=== PATIENT | female | born 1965 | race Caucasian/White ===

== ENCOUNTER 2021-10-02 14:34 | Outpatient (CLI) | payer OTHER, SELFPAY ==
--- NOTE | ~2021-10-02 | MM_ITS ---
EXAMINATION: MM screening warren BI w hans HISTORY: Screening mammogram, family history of breast cancer in her mother. TECHNIQUE: Craniocaudal and mediolateral oblique 3-D tomosynthesis images were obtained and synthetic 2-D images were generated. CAD analysis was submitted and interpreted. COMPARISON: 02/15/2019, 07/23/2018, 07/16/2018, 07/05/2017 BREAST PARENCHYMAL COMPOSITION: There are scattered areas of fibroglandular density. FINDINGS: Scattered benign-appearing calcifications are present. There is no evidence of suspicious m ass, calcification, or architectural distortion to suggest malignancy in either breast. There has bee n no suspicious interval change. IMPRESSION: 1. No mammographic evidence of malignancy. 2. Recommend routine screening mammography in one year. BI-RADS Category 2: Benign finding(s). Reviewed, dictated and finalized at location A. TAMALE MAN
== END 2021-10-02 14:35 | disposition home or self-care (01) ==
LOC: ANHIMG 14:36
PROVIDERS: PCP Family Medicine Adolescent Medicine; Visit Provider Obstetrics & Gynecology
DX: Z12.31 Encounter for screening mammogram for malignant neoplasm of breast (principal)
CPT/HCPCS: 77063; 77067

== ENCOUNTER 2023-04-12 13:42 | Emergency (ER) | payer OTHER, SELFPAY ==
[2023-04-12 13:49] VITALS: BP 130/85; PULSE 65; RESP 16; TEMP 36.4; O2SAT 100
--- NOTE | 2023-04-12 14:28 | ED.SKABFB ---
HPI - Skin/Abscess/Foreign Bdy General Chief complaint: Skin/Abscess/Foreign Body Stated complaint: Insect Bite Rt Breast Time Seen by Provider: 04/12/23 14:23 Source: patient and RN notes reviewed Mode of arrival: ambulatory Limitations: no limitations History of Present Illness HPI narrative: Patient presents today complaining of a wasp sting to her right breast 2 days ago. States the area has started to become red and swollen. Denies pain or drainage. She has tried no aemr-yef-afrgngi interventions prior to arrival. Related Data Home Medications Medication Instructions Recorded Confirmed cyclosporine 0.05 % eye drops in a 1 drp EACH EYE BID 04/12/23 04/12/23 dropperette Allergies Allergy/AdvReac Type Severity Reaction Status Date / Time No Known Allergies Allergy Unknown Verified 04/12/23 14:09 Review of Systems Review of Systems: CONSTITUTIONAL: Denies body aches, fever, chills, or sweats. EYES: Denies visual changes, redness, or discharge. ENT: Denies rhinorrhea, congestion, sore throat, or otalgia. CARDIOVASCULAR: Denies chest pain, palpitations, or edema. RESPIRATORY: Denies cough or dyspnea. GASTROINTESTINAL: Denies abdominal pain, nausea, vomiting, or diarrhea. GENITOURINARY: Denies dysuria or hematuria. SKIN: + wasp sting to right breast MUSCULOSKELETAL: Denies back pain, joint pain, or myalgia. NEUROLOGIC: Denies headache, numbness, tingling, or weakness. PSYCH: Denies depression or anxiety. PMFSH Surgical History Surgical History Hx of neck surgery Family History Family History Mother Breast cancer Grandparent Ovarian cancer Social History Social History Smoking status: Current every day smoker Comments At time of signature, I have reviewed and agree with nursing past medical, surgical, social and family history unless otherwise noted. Please see nursing chart for further information. There is no relevant family history pertinent to the presenting complaint Exam Narrative: GENERAL: Well-appearing, well-nourished, and in no acute distress. HEAD: Normocephalic, atraumatic. EYES: EOMI. No redness or drainage. Conjunctivae normal. ENT: Mucous membranes pink and moist. NECK: Normal AROM. CHEST: No respiratory distress. EXTREMITIES: Normal range of motion. No edema. SKIN: Warm, dry. Capillary refill normal. Normal skin turgor. Entire right breast is erythematous without induration. There is scant edema as well. Small puncture wound to the 7 o'clock position, consistent with insect sting. NEURO: No focal deficits. Alert and oriented x3. Gait steady. PSYCH: Normal affect. No signs of depression or anxiety. Course Course Level of Care: Express Care Visit Vital Signs Vital signs: Vital Signs Temperature 97.6 F 04/12/23 13:49 Pulse Rate 65 04/12/23 13:49 Respiratory Rate 16 04/12/23 13:49 Blood Pressure 130/85 04/12/23 13:49 Pulse Oximetry 100 04/12/23 13:49 Oxygen Delivery Room Air 04/12/23 13:49 Temperature 97.6 F 04/12/23 13:49 Pulse Rate 65 04/12/23 13:49 Respiratory Rate 16 04/12/23 13:49 Blood Pressure 130/85 04/12/23 13:49 Pulse Oximetry 100 04/12/23 13:49 Oxygen Delivery Room Air 04/12/23 13:49 Reviewed. Pt has been instructed to follow up with her PCP regarding her elevated blood pressure today. MDM - Skin/Abscess/Foreign Bdy MDM Narrative Medical decision making narrative: Symptoms and exam consistent with an allergic reaction to insect sting. Will treat with course of prednisone. Instructed patient to start a daily antihistamine as well. Anticipatory guidance given. Differential Diagnosis Differential diagnosis: Likely abscess of skin or subcutaneous tissue, urticaria, cellulitis, insect bites and other (Insect sting)
== END 2023-04-12 14:36 | disposition home or self-care (01) ==
PROVIDERS: Emergency Provider Nurse Practitioner; PCP Family Medicine Adolescent Medicine
DX: T63.461A Toxic effect of venom of wasps, accidental (unintentional), initial encounter (principal); F17.200 Nicotine dependence, unspecified, uncomplicated
CPT/HCPCS: 99213; G0463

== ENCOUNTER 2023-07-02 14:41 | Outpatient (CLI) | payer OTHER, SELFPAY ==
--- NOTE | ~2023-07-02 | MM_ITS ---
EXAMINATION: MM screening warren BI w hans HISTORY: Screening mammogram, family history of breast cancer in her mother. TECHNIQUE: Craniocaudal and mediolateral oblique 3-D tomosynthesis images were obtained and synthetic 2-D images were generated. CAD analysis was submitted and interpreted. COMPARISON: 10/02/2021, 02/05/2019, 07/23/2018, 07/16/2018, 07/05/2017 BREAST PARENCHYMAL COMPOSITION: There are scattered areas of fibroglandular density. FINDINGS: A cluster of microcysts is again noted in the lower-outer right breast. No suspicious mass, calcification, or architectural distortion are identified in either breast to suggest malignancy. Th ere has been no suspicious interval change. IMPRESSION: 1. No mammographic evidence of malignancy. 2. Recommend routine screening mammography in one year. BI-RADS Category 2: Benign finding(s). Reviewed, dictated and finalized at location A.
== END 2023-07-02 14:42 | disposition home or self-care (01) ==
PROVIDERS: PCP Family Medicine Adolescent Medicine; Visit Provider Obstetrics & Gynecology
DX: Z12.31 Encounter for screening mammogram for malignant neoplasm of breast (principal)
CPT/HCPCS: 77063; 77067

== ENCOUNTER 2024-10-28 15:39 | Outpatient (CLI) | payer OTHER, SELFPAY ==
--- NOTE | ~2024-10-28 | MM_ITS ---
EXAMINATION: MM screening warren BI w hans HISTORY: Screening TECHNIQUE: Craniocaudal and mediolateral oblique 3-D tomosynthesis images were obtained and synthetic 2-D images were generated. CAD analysis was submitted and interpreted. COMPARISON: Comparison to multiple prior studies sequentially, with oldest reviewed study dated 02/2017. BREAST PARENCHYMAL COMPOSITION: Not dense: There are scattered areas of fibroglandular density. FINDINGS: There is a new low-density mass in the lower central aspect of the right breast, posteriorl y. The left breast is stable without evidence for malignancy. IMPRESSION: 1. New right breast mass. 2. Additional mammographic views and possible breast ultrasound are recommended. BI-RADS Category 0: Incomplete: Needs additional imaging evaluation. Reviewed, dictated and finalized at location A. GENCY ROOM DOCTOR IMPRESSION: 1. New right breast mass. 2. Additional mammographic views and possible breast ultrasound are recommended . BI-RADS Category 0: Incomplete: Needs additional imaging evaluation.
--- OUTSIDE RECORDS SUMMARY | 2024-10-28 16:24 | XMS_ITS | Clinical Summary ---
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 Gender Identity Not on file Sexual Orientation Not on file Plan of Treatment Health Maintenance Due Date Last Done Comments Hepatitis C Virus (HCV) Screening 1967 TdaP Immunization 1967 Hepatitis B Immunization (1 of 3 - 19+ 3-dose series) 1986 Pap Smear 1988 Cervical Cancer Screening (CCS) 1997 HPV/Cotest 1997 Colonoscopy 2012 Colorectal Cancer Screening 2012 Cologuard 2017 Immunochemical Fecal Occult Blood 2017 Mammogram 2017 Pneumococcal Immunization (5 0+ years) (1 of 1 - PCV) 2017 Zoster Immunization (1 of 2) 2017 Influenza Immunization (#1) 2024 07/27/2020 SARS-COV-2 Immunization (3 - season) 2024 03/13/2021, 02/13/2021 Respiratory Syncytial Virus (RSV) Immunization (Adult) (1 - 1-dose 75+ series) 2042 Meningococcal Immunization (ACWY) Aged Out No longer eligible b ased on patient's age to complete this topic Pneumococcal Immunization Combined Aged Out No longer eligible b ased on patient's age to complete this topic Rotavirus Immunization Aged Out No lo nger eligible based on patient's age to complete this topic
--- OUTSIDE RECORDS SUMMARY | 2024-10-28 16:24 | XMS_ITS | Clinical Summary ---
Author Organization [facility] Address [address] [place] [address] Care Team Providers Care Senior Copywriter Name Role Phone Oliverio Rosas MD Primary Care Provider + Source Comments [facility],non-owned Affiliates and Associated Physician Practices is amultiple site organization consisting of ambulatory clinics and hospital sitesin [place], [place], [place] and [place]. This disclosure is being madepursuant to the Care Everywhere program and may not contain all information available regarding this patient. Last updated 18.[facility] Allergies No known active allergies Medications * Be aware that medications may not be up to date on this document. Alwaysverify current medications with the patient. Medication Sig Dispensed Refills Start Date End Date Status ALPRAZolam (XANAX) 0.5 MG tablet Take 0.5 mg by mouth 3 times daily as needed 02/16/2021 Active atorvastatin (LIPITOR) 40 MG tablet Take 40 mg by mouth once daily 02/01/2021 Active RESTASIS 0.05 % ophthalmic suspension Instill 1 drop into both eyes 2 times daily BOTH EYES 02/08/2021 Active oxybutynin CR 24hr (DITROPAN-XL) 10 MG tablet Take 10 mg by mouth once daily 02/01/2021 Active TRINTELLIX 10 MG tablet Take 10 mg by mouth once daily 02/01/2021 Active Active Problems Problem Noted Date Diagnosed Date Dermatofibroma of right lower extremity 03/12/20 21 Seborrheic keratoses, inflamed 03/05/2021 Social History Tobacco Use Types Packs/Day Years Used Date Smoking Tobacco: Light Smoker Cigarettes Smokeless Tobacco: Never Tobacco Cessation:Ready to Q uit: Yes Comments:1 pk last 3 days Alcohol Use Standard Drinks/Week Comments Yes 1 (1 standard drink = 0.6 oz pur e alcohol) socially Sex and Gender Information Value Date Recorded Sex Assigned at Not on file Gender Identity Not on file Sexual Orientation Not on file Plan of Treatment Health Maintenance Due Date Last Done Comments COLOGUARD (AGES 45-75) - COL ON CA SCREENING 1967 COLON MONITORING 1967 COLONOSCOPY - COLON CA SCREENING 1967 CT COLONOGRAPHY - COLON CA SCREENING 1967 Colorectal Cancer Screening 1967 FIT - COLON CA SCREENING 1967 FLEX SIG - COLON CA SCREENING 1967 MAMMOGRAM 1967 PAP SMEAR 1967 HIV SCREENING 1982 HEPATITIS C SCREENING 05/15/1985 DTAP/TDAP/TD VACCINES (1 - Tdap) 1986 HEPATITIS B VACCINE (1 of 3 - 19+ 3-dose series) 1986 PNEUMOCOCCAL VACCINE 50+ (1 of 2 - PCV) 1986 PNEUMOCOCCAL VACCINE (1 of 2 - PCV) 1986 ZOSTER VACCINE (1 of 2) 2017 COVID-19 VACCINE ( - 2023-2 5 season) 2024 INFLUENZA VACCINE (#1) 2024 DEPRESSION SCREENING 09/30/2024 HIB VACCINE Aged Out No longer eligi ble based on patient's age to complete this topic HPV VACCINE Aged Out No longer eligi ble based on patient's age to complete this topic MENINGOCOCCAL (Group B) VACCINE Aged Out No longer eligible based on patient's age to complete this topic MENINGOCOCCAL VACCINE Aged Out No charlene keny eligible based on patient's age to complete this topic Care Teams Senior Copywriter Relationship Specialty Start Date End Date Oliverio Rosas MD [address] [place] [id number] PCP - General 01/30/18
--- OUTSIDE RECORDS SUMMARY | 2024-10-28 16:24 | XMS_ITS | Clinical Summary ---
Author Organization [facility] Address [address] [place] [address]. [place] [address] [place] [address] Care Team Providers Care Traffic Operations Manager Name Role Phone Oliverio Rosas MD Primary Care Provider [phone] Allergies No known active allergies Medications ALPRAZolam 0.5 MG tablet 05/11/2020 Active sertraline 100 MG tablet Take 100 mg by mouth daily. Active atorvastatin 40 MG tablet Take 40 mg by mouth daily. 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 Not on file Not on file Last Filed Vital Signs Vital Sign Reading Time Taken Comments Blood Pressure 118/71 06/14/2020 10:00 AM CDT Pulse 56 06/14/2020 10:00 AM CDT Temperature 36.4 ??C (97.5 ??F) 06/14/2020 9:40 AM CD T Respiratory Rate 19 06/14/2020 10:00 AM CDT Oxygen Saturation 100% 06/14/2020 10:00 AM CDT Inhaled Oxygen Concentration - - Weight 70.3 kg (155 lb) 06/10/2020 1:59 PM CDT Height 175.3 cm (5' 9 ) 06/10/2020 1:59 PM CDT Body Mass Index 22.89 06/10/2020 1:59 PM CDT Plan of Treatment Health Maintenance Due Date Last Done Comments Cervical Cancer Screening Pa p Smear (Age 30 to 64) Every 3 Years 1967 Annual Physical 1970 Hepatitis C 1985 DTaP, Tdap and Td Vaccines ( 1 - Tdap) 1986 Hepatitis B Vaccines (1 of 3 - 19+ 3-dose series) 1986 Cervical Cancer Screening Pa p with HPV Testing (Age 30 to 64) Every 5 Years 1997 Cervical Cancer Screening with HPV 1997 Mammogram Screening 2007 Zoster Vaccines (1 of 2) 2017 COVID-19 Vaccine (2023-2 5 season) 2024 Influenza Adult (#1) 2024 Colorectal Cancer Screening Colonoscopy (10 Years) 06/14/2030 06/14/2020 Meningococcal B Vaccine Aged Out No l onger eligible based on patient's age to complete this topic Meningococcal Vaccine Aged Out No charlene keny eligible based on patient's age to complete this topic Pneumococcal Vaccine: Pediat rics (0 to 5 Years) and At-Risk Patients (6 to 64 Years) Aged Out No longer eligi ble based on patient's age to complete this topic RSV Immunizations Under 20 Months Aged Out No longer eligible based on patient's age to complete this topic Insurance Care Teams Traffic Operations Manager Relationship Specialty Start Date End Date Oliverio Rosas MD [address] [address] PCP - General FAMILY PRACTICE 06/10/20
--- OUTSIDE RECORDS SUMMARY | 2024-10-28 16:24 | XMS_ITS | Referral Summary ---
Author Organization [facility] [employer] Address [address] [place] [address] Care Team Providers Care Compensation Consulting Manager Name Role Phone Oliverio Rosas MD Primary Care Provider + Source Comments [facility] [employer],non-owned Affiliates and Associated Physician Practices is amultiple site organization consisting of ambulatory clinics and hospital sitesin [place], [place], [place] and [place]. This disclosure is being madepursuant to the Care Everywhere program and may not contain all information available regarding this patient. Last updated 18.[facility] [employer] Allergies No known active allergies Medications * [...] Orientation Not on file Plan of Treatment Not on file Care Teams Compensation Consulting Manager Relationship Specialty Start Date End Date Oliverio Rosas MD [address] [place] [id number] PCP - General 01/30/18
--- OUTSIDE RECORDS SUMMARY | 2024-10-28 16:24 | XMS_ITS | CONTINUITY OF CARE DOCUMENT ---
Author Name melissa karlasebastian Address Unknown Organization [facility] Address [address] [place] [address] [address] [place] [address] Phone [phone] Care Team Providers Care Call Manager Name Role Phone Danilo LYLE, Yessica Unavailable Amparo GA MD Unavailable [phone] KIMBERLI CHRIS MD Unavailable [phone] INSURANCE PROVIDERS Payer name Policy type / Coverage type [place] red republican [employer] FAMILY [employer] Medicaid 1 [id number] [employer] Other [id number]
--- OUTSIDE RECORDS SUMMARY | 2024-10-28 16:24 | XMS_ITS | Encounter Summary ---
Author Organization [facility] Address [address] [place] [address]. [place] [address] [place] [address] Care Team Providers Care Slab Lifting Supervisor Name Role Phone Oliverio Rosas MD Primary Care Provider [phone] Encounter Details Date Type Department Care Team (Late st Contact Info) Description 06/11/2020 Prep for Procedure [facility] [place], [place] [id number] See David MD [address] [id number] Social History Tobacco Use Types Packs/Day Years Used Date Smoking Tobacco: Former Cigarettes 0.5 30 0 01/11/1990 - 01/12/2020 Smokeless Tobacco: Never Alcohol Use Standard Drinks/Week Comments Yes 0 (1 standard drink = 0.6 oz pur e alcohol) rare use Comments Unknown Sex and Gender Information Value Date Recorded Sex Assigned at Not on file Legal Sex Female 2:24 PM CDT Gender Identity Not on file Sexual Orientation Not on file Occupation Industry Job Start Date Job End Date 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 No / Unsure 06/14/2020 7:09 AM CDT documented as of this encounter Plan of Treatment Not on file documented as of this encounter Results * PRE-SURGICAL/PRE-PROCEDURE CORONAVIRUS (COVID 19) (06/11/2020 8:54 AM CDT) CORONAVIRUS SARS COV 2 PCR (RESP) NOT DETECTED NOT DETECTED 06/12/2020 5:06 PM CDT [facility] [facility] Comment: A Not Detected (negative) test result for this test means that SARS- CoV-2 RNA was not present in the specimen above the limit of detection. A negative result does not rule out the possibility of COVID-19 and should not be used as the sole basis for treatment or patient management decisions. ??If COVID-19 is still suspected, based on exposure history together with other clinical findings, re-testing should be considered in consultation with public health authorities. Laboratory test results should always be considered in the context of clinical observations and epidemiological data in making a final diagnosis and patient management decisions. Please review the Fact Sheets and FDA authorized labeling available for health care providers and patients using the following websites: https://www.[employer]/home/Covid-19/HCP/NAAT/fact-sheet2 https://www.[employer]/home/Covid-19/Patients/NAAT/ fact-sheet2 This test has been authorized by the FDA under an Emergency Use Authorization (EUA) for use by authorized laboratories. Due to the current public health emergency, [facility] is receiving a high volume of samples from a wide variety of swabs and media for COVID-19 testing. In order to serve patients during this public health crisis, samples from appropriate clinical sources are being tested. Negative test results derived from specimens received in non-commercially manufactured viral collection and transport media, or in media and sample collection kits not yet authorized by FDA for COVID-19 testing should be cautiously evaluated and the patient potentially subjected to extra precautions such as additional clinical monitoring, including collection of an additional specimen. Methodology: ??Nucleic Acid Amplification Test (NAAT) includes PCR or TMA Additional information about COVID-19 can be found at the [employer] website: www.[employer]/Covid19. Test performed at [facility] [address] [place], [place] ??[id number] Director: SHADE JONES DO,MPH FIRST TEST YES 06/11/2020 11:16 AM [facility] EMPLOYED IN HEALTHCARE NO 06/11/2020 11:16 AM [facility] SYMPTOMATIC DEFINED BY CDC NO 06/11/2020 11:16 AM CDT [facility] DATE OF SYMPTOM ONSET UNKNOWN 06/11/2020 12:05 PM CDT [facility] HOSPITALIZATION STATUS NO 06/11/2020 11:16 AM CDT [facility] PATIENT IN ICU NO 06/11/2020 11:16 AM CDT [facility] RESIDENT OF [facility] NO 06/11/2020 11:16 AM CDT [facility] NOT 06/11/2020 11:16 AM CDT [facility] PATIENT'S RACE PATIENT DECLINED 05/31 11:16 AM CDT [facility] ETHNICITY PATIENT DECLINED 06/11/20 20 11:16 AM CDT [facility] SOURCE (QST) NASOPHARYNGEAL SWAB 06/11/2020 11:16 AM CDT [facility] NASOPHARYNGEAL SWAB / Unknown 06/11/2020 8:54 AM CDT us See David MD MICROBIOLOGY - GENERAL BETH TRAN Final Result [facility] [address] [place] [address], [facility] [facility] [id number] [place] [id number], documented in this encounter Visit Diagnoses Diagnosis Screen for colon cancer- Primary Special screening for malignant neoplasms, colon documented in this encounter Additional Health Concerns Infection Onset Date Last Indicated Resolved Time COVID-19 Rule Out 06/11/2020 06/11/2020 06/12/2020 5:06 PM CDT documented as of this encounter Care Teams Slab Lifting Supervisor Relationship Specialty Start Date End Date Oliverio Rosas MD [address] [place] [id number] PCP - General FAMILY PRACTICE 06/10/20 documented as of this encounter
--- OUTSIDE RECORDS SUMMARY | 2024-10-28 16:24 | XMS_ITS | Patient Health Summary ---
Author Organization [facility] Address [address] [facility] [place] [address] Care Team Providers Care Wool Fleece Grader Name Role Phone Oliverio Rosas MD Primary Care Provider + Note from [facility],non-owned Affiliates and Associated Physician Practices is amultiple site organization consisting of ambulatory clinics and hospital sitesin [place], [place], [place] and [place]. This disclosure is being madepursuant to the Care Everywhere program and may not contain all information available regarding this patient. Last updated 18.[facility] Allergies No known active allergies Medications * Be aware that medications may not be up to date on this document. Alwaysverify current medications with the patient. * ALPRAZolam (XANAX) 0.5 MG tablet(Started 02/16/2021) Take 0.5 mg by mouth 3 times daily as needed * atorvastatin (LIPITOR) 40 MG tablet(Started 02/01/2021) Take 40 mg by mouth once daily * RESTASIS 0.05 % ophthalmic suspension(Started 02/08/2021) Instill 1 drop into both eyes 2 times daily BOTH EYES * oxybutynin CR 24hr (DITROPAN-XL) 10 MG tablet(Started 02/01/2021) Take 10 mg by mouth once daily * TRINTELLIX 10 MG tablet(Started 02/01/2021) Take 10 mg by mouth once daily Active Problems Problem Noted Date Diagnosed Date [...] on file Sexual Orientation Not on file Procedures * ID DESTRUCT BENIGN LESION, 1-14(Performed 03/06/2021) Performed for Seborrheic keratoses, inflamed * FUNGUS KRISSY - POINT OF CARE (AMB) [facility](Performed 08/08/2017) Results * ID DESTRUCT BENIGN LESION, 1-14 (03/06/2021 8:46 AM CDT) Narrative Taz Drummond MD - 03/06/2021 8:46 AM CDT Thad Marshall MD ? 03/06/2021 ??8:46 AM Diagnosis and treatment options discussed for ISKs. Verbal consent obtained. Cryotherapy (Liquid Nitrogen) performed to 1 lesions on L cheek ?? for 6-7 seconds each. Number of cycles: 1. Wound care reviewed and post-cryotherapy handout given. Thad Marshall MD [facility] Dermatology Resident, PGY-4 Taz Drummond MD PROCEDURE/MINOR SURG [facility] ORDERABLES * FUNGUS KRISSY - POINT OF CARE (AMB) [facility] (08/08/2017) KRISSY Prep pos [facility] Fluid specimen (specimen) 08/08/2017 Taz Drummond MD LAB - POINT OF CARE ORDERABLES [facility] Care Teams Wool Fleece Grader Relationship Specialty Start Date End Date Oliverio Rosas MD [address] [place] [id number] PCP - General 01/30/18
== END 2024-10-28 15:40 | disposition home or self-care (01) ==
LOC: ANHIMG 15:42
PROVIDERS: PCP Family Medicine Adolescent Medicine; Visit Provider Obstetrics & Gynecology
DX: Z12.31 Encounter for screening mammogram for malignant neoplasm of breast (principal); N63.14 Unspecified lump in the right breast, lower inner quadrant
CPT/HCPCS: 77063; 77067

== ENCOUNTER 2024-11-11 12:49 | Outpatient (CLI) | payer OTHER, SELFPAY ==
--- NOTE | ~2024-11-11 | MMUS_ITS ---
EXAMINATION: MM diagnostic warren RT w hans, US breast RT complete HISTORY: Right breast lump TECHNIQUE: Additional 3-D tomosynthesis images of the right breast were performed and synthetic 2-D i mages were generated. CAD analysis was submitted and interpreted. High resolution complete right kelly st ultrasound was performed. COMPARISON: Comparison to multiple prior studies sequentially, with oldest reviewed study dated 06/30. BREAST PARENCHYMAL COMPOSITION: Not dense: There are scattered areas of fibroglandular density. FINDINGS: MAMMOGRAPHIC FINDINGS: There is a radiolucent mass in the lower central aspect of the right breast, middle third. There are no suspicious calcifications or architectural distortion. ULTRASOUND: Complete US of all 4 quadrants of the right breast/s and retroareolar region was reviewed. No masses are identified. Normal heterogeneous echotexture. IMPRESSION: 1. Probable benign mass lower central right breast, middle third with central lucency. No sonographic correlate. 2. Recommend 6 month follow-up diagnostic right mammogram BI-RADS category 3, probably benign findings. Reviewed, dictated and finalized at location [facility] IMPRESSION: 1. Probable benign mass lower central right breast, middle third with central l ucency. No sonographic correlate. 2. Recommend 6 month follow-up diagnostic right mammogram BI-RADS category 3, probably benign findings.
--- OUTSIDE RECORDS SUMMARY | 2024-11-11 12:53 | XMS_ITS | Clinical Summary ---
Author Organization [facility] Address [address] [place] [address] Care Team Providers Care Master Tax Advisor Name Role Phone Oliverio Rosas MD Primary Care Provider + Source Comments [facility],non-owned Affiliates and Associated Physician Practices is amultiple site organization consisting of ambulatory clinics and hospital sitesin [place], [place], [place]. This disclosure is being madepursuant to the Care Everywhere program and may not contain all information available regarding this patient. Last updated 18.[facility] Allergies No known active allergies Medications * [...] age to complete this topic Care Teams Master Tax Advisor Relationship Specialty Start Date End Date Oliverio Rosas MD [address] [place] [id number] PCP - General 01/30/18
--- OUTSIDE RECORDS SUMMARY | 2024-11-11 12:53 | XMS_ITS | Patient Health Summary ---
Author Organization [facility] Address [address] [facility] [place] [address] Care Team Providers Care Tank Car Cleaner Name Role Phone Oliverio Rosas MD Primary Care Provider + Note from [facility],non-owned Affiliates and Associated Physician Practices is amultiple site organization consisting of ambulatory clinics and hospital sitesin [place], [place], [place] and [place]. This disclosure is being madepursuant to the Care Everywhere program and may not contain all information available regarding this patient. Last updated 18.[facility] Allergies No known active allergies [...] Sexual Orientation Not on file Procedures * [place] DESTRUCT BENIGN LESION, 1-14(Performed 03/06/2021) Performed for Seborrheic keratoses, inflamed * FUNGUS KRISSY - POINT OF CARE (AMB) [facility](Performed 08/08/2017) Results * [place] DESTRUCT BENIGN LESION, 1-14 (03/06/2021 8:46 AM CDT) Narrative Taz Drummond MD - 03/06/2021 8:46 AM CDT Thad Marshall MD 03/06/2021 8:46 AM Diagnosis and treatment options discussed for ISKs. Verbal consent obtained. Cryotherapy (Liquid Nitrogen) performed to 1 lesions on L cheek for 6-7 seconds each. Number of cycles: 1. Wound care reviewed and post-cryotherapy handout given. Thad Marshall MD [facility] Dermatology Resident, PGY-4 Taz Drummond MD PROCEDURE/MINOR SURG [facility] ORDERABLES * FUNGUS KRISSY - POINT OF CARE (AMB) [facility] (08/08/2017) KRISSY Prep pos [facility] Fluid specimen (specimen) 08/08/2017 Taz Drummond MD LAB - POINT OF CARE ORDERABLES [facility] Care Teams Tank Car Cleaner Relationship Specialty Start Date End Date Oliverio Rosas MD [address] [place] [address] PCP - General 01/30/18
--- OUTSIDE RECORDS SUMMARY | 2024-11-11 12:53 | XMS_ITS | Clinical Summary ---
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
--- OUTSIDE RECORDS SUMMARY | 2024-11-11 12:53 | XMS_ITS | Referral Summary ---
Author Organization [facility] Address [address] [facility] [place] [address] Care Team Providers Care Education Coordinator Name Role Phone Oliverio Rosas MD Primary Care Provider + Source Comments [facility],non-owned Affiliates and Associated Physician Practices is amultiple site organization consisting of ambulatory clinics and hospital sitesin [place], [place], [place] and [place]. This disclosure is being madepursuant to the Care Everywhere program and may not contain all information available regarding this patient. Last updated 18.[facility] Allergies No known active allergies Medications * [...] of Treatment Not on file Care Teams Education Coordinator Relationship Specialty Start Date End Date Oliverio Rosas MD [address] [place] [id number] PCP - General 01/30/18
--- OUTSIDE RECORDS SUMMARY | 2024-11-11 12:53 | XMS_ITS | CONTINUITY OF CARE DOCUMENT ---
Author Name melissa karlasebastian Address Unknown Organization [facility] Address [address] [place] [address] [address] [place] [address] Phone [phone] Care Team Providers Care Peoplesoft Analyst Name Role Phone Danilo LYLE, Yessica Unavailable Amparo GA MD Unavailable KIMBERLI CHRIS MD Unavailable INSURANCE PROVIDERS Payer name Policy type / Coverage type [place] red democr[employer] Medicaid 1 [id number] [employer] Other [id number]
== END 2024-11-11 12:50 | disposition home or self-care (01) ==
LOC: ANHIMG 12:50
PROVIDERS: PCP Family Medicine Adolescent Medicine; Visit Provider Obstetrics & Gynecology
DX: N63.10 Unspecified lump in the right breast, unspecified quadrant (principal); R92.8 Other abnormal and inconclusive findings on diagnostic imaging of breast
CPT/HCPCS: 76641; 77061; 77065; G0279

== ENCOUNTER 2025-05-17 11:13 | Outpatient (CLI) | payer OTHER, SELFPAY ==
--- NOTE | ~2025-05-17 | MMUS_ITS ---
EXAMINATION: MM diagnostic warren RT w hans, US breast RT limited HISTORY: Six-month follow-up exam TECHNIQUE: 3-D tomosynthesis images of the right breast were performed and synthetic 2-D images were generated. CAD analysis was submitted and interpreted. High resolution limited right breast ultrasoun d was performed. COMPARISON: 11/11/2024, 10/28/2024, 07/02/2023 BREAST PARENCHYMAL COMPOSITION:Not Dense. There are scattered areas of fibroglandular density. FINDINGS: MAMMOGRAPHIC FINDINGS: Stable 7 mm low-density mass in the slightly lower, subareolar right breast. No suspicious microcalci fications. No new distortion. ULTRASOUND: At the 6:00 right subareolar region, there is a 7 x 7 x 4 mm hypoechoic circumscribed wider than tall mass, with mildly lobulated borders. This correlates with mammographic finding. IMPRESSION: 7 mm benign-appearing mass in the right breast seen mammographically and sonographically, as above, unchanged dating back to 2022, therefore most compatible with benign finding. BI-RADS Category 2: Benign finding(s). Reviewed, dictated and finalized at location M. IMPRESSION: 7 mm benign-appearing mass in the right breast seen mammographically and sonog raphically, as above, unchanged dating back to 2022, therefore most compatible with benign finding. BI-RADS Category 2: Benign finding(s).
--- OUTSIDE RECORDS SUMMARY | 2025-05-17 12:33 | XMS_ITS | Clinical Summary ---
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 Gender Identity Not on file Sexual Orientation Not on file Plan of Treatment Health Maintenance Due Date Last Done Comments Hepatitis C Virus (HCV) Screening 1967 TdaP Immunization 1967 Hepatitis B Immunization (1 of 3 - 19+ 3-dose series) 1986 Pap Smear 1988 Cervical Cancer Screening (CCS) 1997 HPV/Cotest 1997 Cologuard 2012 Colonoscopy 2012 Colorectal Cancer Screening 2012 Immunochemical Fecal Occult Blood 2012 Pneumococcal Immunization (5 0+ years) (1 of 1 - PCV) 2017 Zoster Immunization (1 of 2) 2017 SARS-COV-2 Immunization ( - season) 2024 03/13/2021, 02/13/2021 Influenza Immunization (#1) 2025 07/27/2020 Respiratory Syncytial Virus (RSV) Immunization (Adult) (1 - 1-dose 75+ series) 2042 Human Papillomavirus (HPV) Immunization Aged Out No longer eligible b ased on patient's age to complete this topic Meningococcal Immunization (ACWY) Aged Out No longer eligible b ased on patient's age to complete this topic Rotavirus Immunization Aged Out No lo nger eligible based on patient's age to complete this topic
--- OUTSIDE RECORDS SUMMARY | 2025-05-17 12:33 | XMS_ITS | Encounter Summary ---
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 A negative result does not rule out the possibility of COVID-19 and should not be used as the sole basis for treatment or patient management decisions. If COVID-19 is still suspected, based on exposure [...] providers and patients using the following websites: https://www.[employer]/home/Covid-19/HCP/NAAT/fact-sheet2 https://www.[employer]/home/Covid-19/Patients/NAAT/ fact-sheet2 This test has been authorized by the FDA under an Emergency Use Authorization (EUA) for use by authorized laboratories. Due to the current public health emergency, [facility] is receiving a high volume of samples [...] including collection of an additional specimen. Methodology: Nucleic Acid Amplification Test (NAAT) includes PCR or TMA Additional information about COVID-19 can be found at the [facility] website: www.[employer]/Covid19. Test performed at [facility] [address] [place] [address] Director: SHADE JONES DO,MPH FIRST TEST YES 06/11/2020 11:16 AM CDT [facility] EMPLOYED IN HEALTHCARE NO 06/11/2020 11:16 AM T [facility] SYMPTOMATIC DEFINED BY CDC NO 06/11/2020 11:16 AM CDT [facility] DATE OF SYMPTOM ONSET UNKNOWN 06/11/2020 12:05 PM CDT [facility] HOSPITALIZATION STATUS NO 06/11/2020 11:16 AM CDT [facility] PATIENT IN ICU NO 06/11/2020 11:16 AM CDT [facility] RESIDENT OF CONGREGATE CARE NO 06/11/2020 11:16 AM CDT [facility] NOT 06/11/2020 11:16 AM CDT [facility] PATIENT'S RACE PATIENT DECLINED 05/31 11:16 AM CDT [facility] ETHNICITY PATIENT DECLINED 06/11/20 20 11:16 AM CDT [facility] SOURCE (QST) NASOPHARYNGEAL SWAB 06/11/2020 11:16 AM CDT [facility] NASOPHARYNGEAL SWAB / Unknown 06/11/2020 8:54 AM CDT us See David MD MICROBIOLOGY - GENERAL BETH TRAN Final Result [facility] [address] [place] [address], [facility] [address] [address], documented in this encounter Visit Diagnoses Diagnosis Screen for colon cancer- Primary Special screening for malignant neoplasms, colon documented in this encounter Additional Health Concerns Infection Onset Date Last Indicated Resolved Time COVID-19 Rule Out 06/11/2020 06/11/2020 06/12/2020 5:06 PM CDT documented as of this encounter Care Teams Board Machine Set Up Operator Relationship Specialty Start Date End Date Oliverio Rosas MD [address] [address] PCP - General FAMILY PRACTICE 06/10/20 documented as of this encounter
--- OUTSIDE RECORDS SUMMARY | 2025-05-17 12:33 | XMS_ITS | Clinical Summary ---
Author Organization [facility] [employer] Address [address] [facility] [place] [address] Care Team Providers Care Career Center Advisor Name Role Phone Oliverio Rosas MD Primary Care Provider + Source Comments [facility] [employer],non-owned Affiliates and Associated Physician Practices is amultiple site organization consisting of ambulatory clinics and hospital sitesin [place], [place], [place] and [place]. This disclosure is being madepursuant to the Care Everywhere program and may not contain all information available regarding this patient. Last updated 18.[facility] [employer] Allergies No known active allergies Medications * Be aware that medications may not be up to date on this document. Alwaysverify current medications with the patient. 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 Gender Identity Not on file Sexual Orientation [...] - COLON CA SCREENING 1967 MAMMOGRAM 1967 HIV SCREENING 1982 HEPATITIS C SCREENING 05/15/1985 DTAP/TDAP/TD VACCINES (1 - Tdap) 1986 HEPATITIS B VACCINE (1 of 3 - 19+ 3-dose series) 1986 PNEUMOCOCCAL VACCINE 50+ (1 of 1 - PCV) 2017 ZOSTER VACCINE (1 of 2) 2017 COVID-19 VACCINE (1 - 2023-2 5 season) 2024 DEPRESSION SCREENING 09/30/2024 INFLUENZA VACCINE (#1) 2025 HIB VACCINE Aged Out No longer eligi ble based on patient's age to complete this topic HPV VACCINE Aged Out No longer eligi ble based on patient's age to complete this topic MENINGOCOCCAL (Group B) VACC INE SHARED DECISION-MAKING Aged Out No longer eligibl e based on patient's age to complete this topic MENINGOCOCCAL GROUPS A/C/Y/W VACCINE Aged Out No longer eligible b ased on patient's age to complete this topic Insurance Care Teams Career Center Advisor Relationship Specialty Start Date End Date Oliverio Rosas MD [address] [address] PCP - General 01/30/18
--- OUTSIDE RECORDS SUMMARY | 2025-05-17 12:34 | XMS_ITS | Clinical Summary ---
Author Organization [facility] Address [address] [place] [address] Care Team Providers Care Missile Facilities Repairer Name Role Phone Oliverio Rosas MD Primary Care Prov ider Allergies No known active allergies Medications ALPRAZolam (XANAX) 0.5 mg tablet 4 02/04/2025 Active Concerta 27 mg CR tablet 0 02/21/2025 Active lovastatin (MEVACOR) 40 mg tablet Take 1 tablet (40 mg total) by mouth nightly Active FLUoxetine (PROzac) 40 mg capsule Take 1 capsule (40 mg total) by mouth daily Active buPROPion XL (WELLBUTRIN XL) 300 mg 24 hr tablet Take 1 tablet (300 mg total) by mouth daily Active oxyBUTYnin XL (DITROPAN-XL) 10 mg 24 hr tablet Take 1 tablet (10 mg total) by mouth daily Active epwtolou-pmdl-v in-folic acid 18-0.4 mg tablet Take by mouth Active ibuprofen (ADVIL,MOTRIN) 400 mg tablet Take by mouth every 6 (six) hours as needed for pain Active Active Problems No known active problems Encounters Date Type Department Care Team Description 03/09/2025 7:32 AM CDT Anesthesia Event [facility] [address] [place] [address] Salo Sierra MD 03/09/2025 7:30 AM CDT - 03/09/2025 8:00 AM CDT Surgery [facility] [address] [place] [address] Chon Chatman MD COLON REMOVAL SNARE 03/09/2025 6:13 AM CDT - 03/09/2025 9:50 AM CDT Hospital Encounter [facility] [address] [id number] Chon Chatman MD History of colon polyps Discharge Disposition: Discharge to home or self care from Last 3 Months Surgical History Surgery Date Site/Laterality Comments COLONOSCOPY CERVICAL SPINE SURGERY C6 SECTION Medical History Medical History Date Comments Colon polyp Chronic constipation Hyperlipidemia Anxiety Depression Adhd Social History Tobacco Use Types Packs/Day Years Used Date Smoking Tobacco: Every Day Cigarettes Tobacco Cessation:Ready to Q uit: Not Asked; Counseling Given: Not Answered AUDIT-C Answer Date Recorded Q1: How often do you have a drink containing alc ohol? 2-3 times a week 03/09/2025 Q2: How many drinks containi ng alcohol do you have on a typical day when you are drinking? 1 or 2 03/09/2025 Q3: How often do you have si x or more drinks on one occasion? Less than monthly 03/09/2025 Personal Safety Answer Date Recorded Have you ever been in or are you currently in a harmful physical or emotional relationship or is someone making you feel afraid or unsafe? 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 Gender Identity Not on file Sexual Orientation Not on file Obstetrics History Last Filed Vital Signs Vital Sign Reading Time Taken Comments Blood Pressure 133/74 03/09/2025 9:25 AM CDT Pulse 58 03/09/2025 9:25 AM CDT Temperature 36.3 C (97.3 F) 03/09/2025 6:35 AM CDT Respiratory Rate 8 03/09/2025 9:25 AM CDT Oxygen Saturation 99% 03/09/2025 9:25 AM CDT Inhaled Oxygen Concentration - - Weight 72.6 kg (160 lb) 03/09/2025 6:54 AM CDT Height 175.3 cm (5' 9) 03/09/2025 6:54 AM CDT Body Mass Index 23.63 03/09/2025 6:54 AM CDT Plan of Treatment Upcoming Encounters Date Type Department Care Team (Late st Contact Info) Description 05/27/2025 9:30 AM CDT Hospital Encounter [facility] [address] [place] [address] Chon Chatman MD [address] [place] [id number] 05/27/2025 9:30 AM CDT - 05/27/2025 10:00 AM CDT Surgery [facility] [address] [place] [address] Chon Chatman MD [address] [place] [phone] COLONOSCOPY Scheduled Procedures Name Priority Associated Diagnoses Date/Ti me COLONOSCOPY screening 05/27/2025 9:30 AM CDT Health Maintenance Due Date Last Done Comments Breast Cancer Screening-Mammogram 1965 Cervical Cancer Screening 1965 Depression Screening 1965 Hepatitis C Screening 1965 DTaP/Tdap/Td Vaccine (1 - Tdap) 1978 Hepatitis B Screening 1985 Regular Well Visit/Exam 18-64 1985 Pneumococcal vaccine <65 (1 of 2 - PCV) 1986 Zoster Vaccine (1 of 2) 2017 Influenza Vaccine (#1) 2025 Colon Cancer Screening-Colonoscopy 03/09/20352024 Medical Devices Implanted Type Area Bobbin Stripper Device Identifier Shelf Expiration Date Model / Serial / Lot Neck Inplant Neck Procedures Procedure Name Priority Date/Time Associated Diagnosis Comments SURGICAL PATHOLOGY Routine 03/09/2025 8: 14 AM CDT History of colon polyps COLONOSCOPY 03/09/2025 7:32 AM CDT ENDO ADD ON COLON BIOPSY 03/09/2025 7:32 AM CDT Screening COLON REMOVAL SNARE 03/09/2025 7 :32 AM CDT Screening from Last 3 Months Results * Surgical pathology (03/09/2025 8:14 AM CDT) Tissue (Colon, Biopsy) 03/09/2025 8:14 AM CDT Tissue specimen (specimen) (Colon, Biopsy) 03/09/2025 8:14 AM CDT Tissue specimen (specimen) (Colon, Biopsy) 03/09/2025 8:17 AM CDT Tissue specimen (specimen) (Polyp(s), colon/colorectal, esophageal, gastric) 03/09/2025 8:24 AM CDT Tissue specimen (specimen) (Colon, Biopsy) 03/09/2025 8:32 AM CDT Tissue specimen (specimen) (Colon, Biopsy) 03/09/2025 8:35 AM CDT Tissue specimen (specimen) (Colon, Biopsy) 03/09/2025 8:40 AM CDT Tissue specimen (specimen) (Polyp(s), colon/colorectal, esophageal, gastric) 03/09/2025 8:44 AM CDT Tissue specimen (specimen) (Polyp(s), colon/colorectal, esophageal, gastric) 03/09/2025 8:47 AM CDT Narrative PATHOLOGY [facility] - 03/12/2025 2:25 PM CDT [facility] Department of Pathology [address] [place] [address] Note to Patients: This report may contain a detailed description of human tissue sent by a health care provider to the laboratory for pathologic evaluation. The content of this report is essential for diagnosis and may provide important critical findings. This information may be unfamiliar to patients to review without a medical professional present. It is advised that the patient review this report in the presence of a health care provider who can answer questions and explain the details. Final Report Patient Name: BAYRON HERRERA : 1965 (Age: 59) Gender: F Address: [address] [place] [address] Hospital #: [id number] Service: Surgery Location: Patient Type: [facility] OUTPATIENT Taken: 03/09/2025 Received: 03/09/2025 Accessioned: 03/09/2025 Reported: 03/12/2025 Physician(s): MD Oliverio Figueroa M.D. Diagnosis: A. Cecal polyp, biopsy - Tubular adenoma. B. Ascending colon polyp, biopsy - Tubular adenoma. C. Proximal transverse colon polyp, biopsy - Tubular adenoma. D. Mid transverse colon polyps x3, biopsy - Fragments of tubular adenoma(s). E. Distal transverse colon polyp, biopsy - Tubular adenoma. F. Splenic flexure polyps x2, biopsy - Fragments of tubular adenoma(s). G. Descending colon polyps x2, biopsy - Hyperplastic polyp. - Tubular adenoma. H. Sigmoid colon polyp, biopsy - Hyperplastic polyp. I. Rectal polyp, biopsy - Hyperplastic polyp. Sanya Byrne M.D. Report Electronically Reviewed and Signed Out By Sanya Byrne M.D. 03/12/2025 14:25:31 Specimen(s) Received: A: cecal polyp biopsy x1 B: ascending colon polyp x1 C: proximal transverse colon polyp x1 D: mid transverse colon polyp x3 E: distal transverse colon polyp F: splenic flexure polyp x2 G: descending colon polyp x2 H: sigmoid colon polyp x1 I: rectum polyp x1 Microscopic Description: Microscopic examination is performed. Microscopic examination is performed. Clinical History: The patient is a 59-year-old woman presenting for a colon cancer screening. Operative procedure : colonoscopy and biopsy. Gross Description Received in nine formalin jars labeled with the patient's identifiers. A. Labeled cecal polyp biopsy x1 and consists of a 0.4 cm fragment of jones-pink tissue. Submitted entirely. Labeled A1. Jar 0. B. Labeled ascending colon polyp x1 and consists of a 0.2 cm fragment of jones-pink tissue. Submitted entirely. Labeled B1. Jar 0. C. Labeled proximal transverse colon polyp x1 and consists of two fragments of jones-pink tissue measuring 0.4 cm and 0.5 cm. Submitted entirely. Labeled C1. Jar 0. D. Labeled mid transverse colon polyp x3 and consists of four fragments of jones- pink tissue ranging 0.3 to 0.8 cm. The largest is inked black and bisected. Submitted entirely. Labeled D1. Jar 0. E. Labeled distal transverse colon polyp and consists of a 0.4 cm fragment of jones-pink tissue. Submitted entirely. Labeled E1. Jar 0. F. Labeled splenic flexure polyp x2 and consists of three fragments of jones-pink tissue ranging 0.3-0.4 cm. Submitted entirely. Labeled F1. Jar 0. G. Labeled descending colon polyp x2 and consists of a 0.5 cm fragment of jones- pink tissue. Submitted entirely. Labeled G1. Jar 0. H. Labeled sigmoid colon polyp x1 and consists of a 1.0 x 0.6 x 0.5 cm polypoid jones-pink tissue fragment. Sectioned and submitted entirely. Labeled H1. Jar 0. I. Labeled rectum polyp x1 and consists of two jones-pink polypoid tissue fragments measuring 0.5 and 0.8 cm. Largest is inked black and bisected. Submitted entirely. Labeled I1. Jar 0. [facility]/03/09/2025 15:52 AUBREY Osborne Microscopic slide review and interpretation for this case was performed at [facility], Department of Surgical Pathology, [address] [facility] [place] [place] [id number], [place] [address] CLIA # [id number] us Chon Chatman MD LAB PATHOLOGY ORDERAB LES Final Result PATHOLOGY [facility] * Colonoscopy (03/09/2025 7:32 AM CDT) Anatomical Region Laterality Modality Other Narrative Procedure Note Chon Chatman MD - 03/09/2025 7:32 AM CDT [facility] GI ENDOSCOPY Patient Name: Bayron Herrera Procedure Date: 03/09/2025 7:32 AM Date of : 1965 Admit Type: Outpatient Age: 59 Gender: Female Attending MD: Chon Chatman M.D. Room: [facility] ENDOSCOPY ROOM 05 Note Status: Finalized Procedure: Colonoscopy Indications: Screening for colorectal malignant neoplasm Referring MD: Providers: Chon Chatman M.D. Medicines: See the Anesthesia note for documentation of the administered medications Complications: No immediate complications. Estimated Blood Loss: Estimated blood loss was minimal. Procedure: The benefits, risks and alternatives of theprocedure and sedation were discussed and informed consentwas obtained. All questions were answered. Please referto the signed informed consent document in the medical record. The scope was passed under direct vision.The PCF-H180AL colonoscope was introduced through theanus and advanced to the cecum, identified byappendiceal orifice and ileocecal valve. The colonoscopy was performed without difficulty. The patient tolerated the procedure well. The quality of the bowel preparation was inadequate. Findings: The perianal and digital rectal examinations were normal. Three pedunculated polyps were found in the rectum, sigmoid colon, transverse colon and mid transverse colon. The polyps were 3 to 6 mmin size. These polyps were removed with a hot snare. Resection and retrieval were complete. Nine sessile polyps were found in the sigmoid colon, descendingcolon, mid descending colon, splenic flexure, proximal transverse colon, mid transverse colon, distal transverse colon, proximal ascending colonand cecum. The polyps were 2 to 4 mm in size. These polyps were removedwith a jumbo cold forceps. Resection and retrieval were complete. The retroflexed view of the distal rectum and anal verge was normaland showed no anal or rectal abnormalities. Impression: - Preparation of the colon was inadequate. - Three 3 to 6 mm polyps in the rectum, in thesigmoid colon, in the transverse colon and in the mid transverse colon, removed with a hot snare.Resected and retrieved. - Nine 2 to 4 mm polyps in the sigmoid colon, inthe descending colon, in the mid descending colon, atthe splenic flexure, in the proximal transverse colon,in the mid transverse colon, in the distal transverse colon, in the proximal ascending colon and in the cecum, removed with a jumbo cold forceps. Resectedand retrieved. - The distal rectum and anal verge are normal on retroflexion view. Recommendation: - Repeat colonoscopy in 3 months because the bowel preparation was suboptimal. Chon Yanez Chon Chatman M.D. 03/09/2025 9:11:04 AM . Number of Addenda: 0 Note Initiated On: 03/09/2025 7:32 AM Recognized by the [employer] for promoting quality in endoscopy Chon Chatman MD ENDOSCOPY PROCEDURES Final Result from Last 3 Months Insurance [facility] Care Teams Missile Facilities Repairer Relationship Specialty Start Date End Date Oliverio Rosas MD [address] [place] [address] PCP - General Family Medicine 03/09/25
--- OUTSIDE RECORDS SUMMARY | 2025-05-17 12:34 | XMS_ITS | Clinical Summary ---
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[employer] Not on file Not on file Not on file Last Filed Vital Signs Vital Sign Reading Time Taken Comments Blood Pressure 118/71 06/14/2020 10:00 AM CDT Pulse 56 06/14/2020 10:00 AM CDT Temperature 36.4 C (97.5 F) 06/14/2020 9:40 AM CDT Respiratory Rate 19 06/14/2020 10:00 AM CDT Oxygen Saturation 100% 06/14/2020 10:00 AM CDT Inhaled Oxygen Concentration - - Weight 70.3 kg (155 lb) 06/10/2020 1:59 PM CDT Height 175.3 cm (5' 9) 06/10/2020 1:59 PM CDT Body Mass Index [...] Screening with HPV 1997 Mammogram Screening 2007 Pneumococcal Vaccine: 50+ Ye ars (1 of 1 - PCV) 2017 Zoster Vaccines (1 of 2) 2017 COVID-19 Vaccine (1 - 2023-2 5 season) 2024 Colorectal Cancer Screening Colonoscopy (10 Years) 06/14/2030 06/14/2020 Meningococcal B Vaccine Aged Out No l onger eligible based on patient's age to complete this topic Meningococcal Vaccine Aged Out No charlene keny eligible based on patient's age to complete this topic RSV Immunizations Under 20 Months Aged Out No longer eligible based on patient's age to complete this topic Insurance [facility] Care Teams Spool Sorter Relationship Specialty Start Date End Date Oliverio Rosas MD [phone] [address] PCP - General FAMILY PRACTICE 06/10/20
== END 2025-05-17 11:14 | disposition home or self-care (01) ==
LOC: ANHIMG 11:14
PROVIDERS: PCP Family Medicine Adolescent Medicine; Visit Provider Obstetrics & Gynecology
DX: N63.41 Unspecified lump in right breast, subareolar (principal)
CPT/HCPCS: 76642; 77061; 77065; G0279